=== PATIENT | female | born 1975 | race Caucasian/White ===

== ENCOUNTER 2017-02-28 14:21 | Emergency (ER) | payer MEDICAID ==
[2017-02-28 15:29] LABS: BASO % 0.4 % (0-6); EOS % 3.3 % (0-6); GRAN % 67.3 % (47-80); HEMATOCRIT 42.4 % (35.0-47.0); HEMOGLOBIN 14.4 gm/dl (11.6-16.0); LYMPH % 22.3 % (16-45); MEAN CELL VOLUME 91.2 fl (81-97); MEAN PLATELET VOLUME 12.9 fl (7.4-10.4); MONO % 6.7 % (0-9); PLATELET COUNT 218 K/uL (130-400); RED BLOOD COUNT 4.65 M/uL (3.80-5.40); RED CELL DISTRIBUTION WIDTH 16.2 % (11.5-14.5); WHITE BLOOD COUNT W/O DIFF 10.7 K/uL (4.2-12.2)
[2017-02-28 15:30] LABS: URINE APPEARANCE CLEAR; URINE BILIRUBIN NEGATIVE (NEGATIVE); URINE BLOOD NEGATIVE (NEGATIVE); URINE COLOR YELLOW; URINE GLUCOSE (UA) NEGATIVE (NEGATIVE); URINE KETONE NEGATIVE (NEGATIVE); URINE LEUKOCYTE ESTERASE NEGATIVE (NEGATIVE); URINE NITRITE NEGATIVE (NEGATIVE); URINE PROTEIN NEGATIVE (NEGATIVE); URINE UROBILINOGEN 0.2 E.U./dL (0.20 - 1.00)
[2017-02-28] MEDS: LORAZEPAM 0.5 MG TABLET PO ONE ×2 (15:32→22:33)
[2017-02-28 15:34] LABS: COCAINE SCREEN URINE DETECTED; OPIATE SCREEN URINE DETECTED
[2017-02-28 15:35] LABS: AMPHETAMINE SCREEN URINE NOT DETECTED; BARBITURATE SCREEN URINE NOT DETECTED; BENZODIAZEPINE SCREEN URINE DETECTED; METHADONE SCREEN URINE NOT DETECTED; METHAMPHETAMINE SCREEN NOT DETECTED; OXYCODONE SCREEN URINE NOT DETECTED; PHENCYCLIDINE SCREEN URINE NOT DETECTED; PROPOXYPHENE SCREEN URINE NOT DETECTED; THC SCREEN URINE NOT DETECTED; TRICYCLIC ANTIDEPRESSANT SCRN NOT DETECTED
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
[2017-02-28 16:02] LABS: ALBUMIN 3.4 g/dL (4.0-5.0); ALKALINE PHOSPHATASE 78 U/L (35-104); ALT/SGPT 11 U/L (<33); AST/SGOT 15 U/L (10.0-35.0); BLOOD UREA NITROGEN 5 mg/dL (6-20); CREATININE 0.6 mg/dL (0.5-0.9); EST GLOMERULAR FILTRATION RATE > 60 mL/min; GLUCOSE,RANDOM 92 mg/dL (74-109); THYROID STIMULATING HORMONE 0.74 uIU/mL (0.270-4.20); TOTAL PROTEIN 6.7 g/dL (6.6-8.7)
[2017-02-28] MEDS: POTASSIUM CHLORIDE 20 MEQ TABLET PO ONE (16:18)
[2017-02-28] MEDS: IBUPROFEN 400 MG TABLET PO ONE (19:49)
[2017-02-28] MEDS: NICOTINE14 MG/24 HOUR PATCH TD SCH (19:59)
--- NOTE | 2017-02-28 23:45 | Emergency Department Record ---
History of Present Illness - General Chief Complaint: Suicide attempt Stated Complaint: CUTTING HERSELF Time Seen by Provider: 02/28/17 14:55 Source: Patient, Family Mode of Arrival: Ambulatory - History of Present Illness Onset/Timin -: Hour(s) Associated Psychiatric Symptoms: Auditory hallucinations, Depression, Suicidal ideation History of same: No Quality: Getting worse Improves With: None Context: Not taking psychiatric medications, Significant life stressor Associated Symptoms: Denies other symptoms Treatments Prior to Arrival: None If Self Harm: Admits thoughts of self harm, Self-inflicted trauma - [place] Coma Scale Eye Response: (4) Open spontaneously Motor Response: (6) Obeys commands Verbal Response: (5) Oriented [place]ora Total: 15 - Related Data Home Medications Medication Instructions Recorded Confirmed Last Taken Hydrocodone/Acetaminophen [[place] 1 each PO Q8H PRN 02/28/17 03/01/17 02/27/17 5-325 Tablet] Allergies Allergy/AdvReac Type Severity Reaction Status Date / Time amoxicillin Allergy Mild rash Verified 02/28/17 16:03 Penicillins Allergy Mild rash Verified 02/28/17 16:03 Review of Systems Constitutional: Reports: As per HPI. Denies: Chills, Fever, Malaise, Night sweats, Weakness, Weight change Eyes: Reports: As per HPI. Denies: Eye discharge, Eye pain, Photophobia, Vision change ENT: Reports: As per HPI. Denies: Congestion, Dental pain, Ear pain, Epistaxis , Hearing loss, Throat pain Respiratory: Reports: As per HPI. Denies: Cough, Dyspnea, Hemoptysis, Stridor, Wheezes Cardiovascular: Reports: As per HPI. Denies: Arrhythmia, Chest pain, Dyspnea on exertion, Edema, Murmurs, Orthopnea, Palpitations, Paroxysmal nocturnal dyspnea, Rheumatic Fever, Syncope Endocrine: Reports: As per HPI. Denies: Fatigue, Heat or cold intolerance, Polydipsia, Polyuria Gastrointestinal: Reports: As per HPI. Denies: Abdominal pain, Constipation, Diarrhea, Hematemesis, Hematochezia, Melena, Nausea, Vomiting Genitourinary: Reports: As per HPI. Denies: Abnormal menses, Discharge, Dyspareunia, Dysuria, Frequency, Hematuria, Incontinence, Retention, Urgency Musculoskeletal: Reports: As per HPI. Denies: Arthralgia, Back pain, Gout, Joint swelling, Myalgia, Neck pain Skin: Reports: As per HPI. Denies: Bruising, Change in color, Change in hair/ nails, Lesions, Pruritus, Rash Neurological: Reports: As per HPI. Denies: Abnormal gait, Confusion, Headache, Numbness, Paresthesias, Seizure, Tingling, Tremors, Vertigo, Weakness Psychiatric: Reports: As per HPI, Anxiety, Depression, Suicidal thoughts. Denies: Auditory hallucinations, Homicidal thoughts, Visual hallucinations Hematological/Lymphatic: Reports: As per HPI. Denies: Anemia, Blood Clots, Easy bleeding, Easy bruising, Swollen glands Past Medical History - SOCIAL HISTORY Smoking Status: Current every day smoker Alcohol Use: Occasional Drug Use: None - RESPIRATORY Hx Respiratory Disorders: No - CARDIOVASCULAR Hx Cardio Disorders: Yes Hx Hypertension: Yes - NEURO Hx Neuro Disorders: No - GI Hx GI Disorders: Yes Hx Reflux: Yes - Hx Genitourinary Disorders: No - ENDOCRINE Hx Endocrine Disorders: No - MUSCULOSKELETAL Hx Musculoskeletal Disorders: Yes Hx Back Injury: Yes - PSYCH Hx Psych Problems: Yes Hx Anxiety: Yes Hx Depression: Yes - HEMATOLOGY/ONCOLOGY Hx Hematology/Oncology Disorders: Yes Comment:: Anti E blood Family Medical History Any Significant Family History?: No Physical Exam - General Limitations: No limitations Course Vital Signs 02/28/17 02/28/17 02/28/17 14:29 16:04 16:08 Temperature 98.1 F Pulse Rate 92 H Pulse Rate [ 77 Pulse Ox Probe] Respiratory 20 16 Rate Blood Pressure 173/115 Blood Pressure 162/108 [Left Arm] Pulse Ox 99 98 02/28/17 02/28/17 16:44 19:04 Temperature Pulse Rate Pulse Rate [ 79 87 Pulse Ox Probe] Respiratory 16 16 Rate Blood Pressure Blood Pressure 143/102 185/104 [Left Arm] Pulse Ox 100 99 - Reevaluation(s) Reevaluation #1: 02/28/17 23:43 [facility] re-contacted for an updated as records were faxed approximately 6 hours ago , they report that they have received all information however there are 4 other patient's ahead of this patient for evaluation. Patient is resting comfortably at this time, updated on timeline. Reevaluation #2: 03/01/17 02:30 patient sleeping, vital signs are stable on examination. Awaiting return call from [facility] for psychiatric evaluation. Reevaluation #3: 03/01/17 04:35 Patient continues to rest comfortably, has been accepted by [facility] for evaluation. EMS contacted for transfer. Medical Decision Making - Lab Data Result diagrams: 02/28/17 15:17 02/28/17 15:17 Lab Results 02/28/17 02/28/17 02/28/17 Range/Units 15:17 15:17 15:17 WBC 10.7 (4.2-12.2) K/uL RBC 4.65 (3.80-5.40) M/uL Hgb 14.4 (11.6-16.0) gm/dl Hct 42.4 (35.0-47.0) % MCV 91.2 (81-97) fl MCH 31.0 (27-33) pg MCHC 34.0 (32-36) g/dl RDW 16.2 H (11.5-14.5) % Plt Count 218 (130-400) K/uL MPV 12.9 H (7.4-10.4) fl Gran % 67.3 (47-80) % Lymphocytes % 22.3 (16-45) % Monocytes % 6.7 (0-9) % Eosinophils % 3.3 (0-6) % Basophils % 0.4 (0-6) % Sodium (136-145) mmol/L Potassium (3.4-4.5) mmol/L Chloride (98-107) mmol/L Carbon Dioxide (22-29) mmol/L Anion Gap (7-16) BUN (6-20) mg/dL Creatinine (0.5-0.9) mg/dL Estimated GFR mL/min Random Glucose (74-109) mg/dL Calcium (8.6-10.0) mg/dL Total Bilirubin (0.2-1.0) mg/dL AST (10.0-35.0) U/L ALT (<33) U/L Alkaline Phosphatase (35-104) U/L Total Protein (6.6-8.7) g/dL Albumin (4.0-5.0) g/dL Globulin (1.4-4.8) gm/dL Albumin/Globulin Ratio (1.1-1.8) TSH (0.270-4.20) uIU/mL Urine Color Yellow Urine Appearance Clear Urine pH 6.0 (5.0-8.0) Ur Specific [place] <= 1.005 (1.002-1.030) Urine Protein Negative (NEGATIVE) Urine Glucose (UA) Negative (NEGATIVE) Urine Ketones Negative (NEGATIVE) Urine Blood Negative (NEGATIVE) Urine Nitrite Negative (NEGATIVE) Urine Bilirubin Negative (NEGATIVE) Urine Urobilinogen 0.2 (0.20 - 1.00) E.U./dL Ur Leukocyte Esterase Negative (NEGATIVE) Urine Opiates Screen Detected Ur Oxycodone Screen Not detected Urine Methadone Screen Not detected Ur Propoxyphene Screen Not detected Ur Barbituates Screen Not detected Ur Tricyclics Screen Not detected Ur Phencyclidine Scrn Not detected Ur Amphetamine Screen Not detected U Methamphetamines Scrn Not detected U Benzodiazepines Scrn Detected Urine Cocaine Screen Detected Urine Cannabis Screen Not detected Ethyl Alcohol (0-0.010) g/dL 02/28/17 Range/Units 15:17 WBC (4.2-12.2) K/uL RBC (3.80-5.40) M/uL Hgb (11.6-16.0) gm/dl Hct (35.0-47.0) % MCV (81-97) fl MCH (27-33) pg MCHC (32-36) g/dl RDW (11.5-14.5) % Plt Count (130-400) K/uL MPV (7.4-10.4) fl Gran % (47-80) % Lymphocytes % (16-45) % Monocytes % (0-9) % Eosinophils % (0-6) % Basophils % (0-6) % Sodium 139 (136-145) mmol/L Potassium 3.3 L (3.4-4.5) mmol/L Chloride 102 (98-107) mmol/L Carbon Dioxide 25.0 (22-29) mmol/L Anion Gap 12.0 (7-16) BUN 5 L (6-20) mg/dL Creatinine 0.6 (0.5-0.9) mg/dL Estimated GFR > 60 mL/min Random Glucose 92 (74-109) mg/dL Calcium 9.2 (8.6-10.0) mg/dL Total Bilirubin 0.20 (0.2-1.0) mg/dL AST 15 (10.0-35.0) U/L ALT 11 (<33) U/L Alkaline Phosphatase 78 (35-104) U/L Total Protein 6.7 (6.6-8.7) g/dL Albumin 3.4 L (4.0-5.0) g/dL Globulin 3.3 (1.4-4.8) gm/dL Albumin/Globulin Ratio 1.0 L (1.1-1.8) TSH 0.74 (0.270-4.20) uIU/mL Urine Color Urine Appearance Urine pH (5.0-8.0) Ur Specific [place] (1.002-1.030) Urine Protein (NEGATIVE) Urine Glucose (UA) (NEGATIVE) Urine Ketones (NEGATIVE) Urine Blood (NEGATIVE) Urine Nitrite (NEGATIVE) Urine Bilirubin (NEGATIVE) Urine Urobilinogen (0.20 - 1.00) E.U./dL Ur Leukocyte Esterase (NEGATIVE) Urine Opiates Screen Ur Oxycodone Screen Urine Methadone Screen Ur Propoxyphene Screen Ur Barbituates Screen Ur Tricyclics Screen Ur Phencyclidine Scrn Ur Amphetamine Screen U Methamphetamines Scrn U Benzodiazepines Scrn Urine Cocaine Screen Urine Cannabis Screen Ethyl Alcohol 0.000 (0-0.010) g/dL Disposition Disposition: Discharge Clinical Impression: Suicidal behavior Qualifiers: Attempted self-injury: with attempted self-injury Qualified Code(s): T14.91XA - Suicide attempt, initial encounter Disposition: Psychiatric Hospital Condition: (1) Good Forms: Patient Portal Access Time of Disposition: 04:31 Quality - Quality Measures Quality Measures: N/A - Blood Pressure Screening Does Patient Have Any of the Following: Active Dx of HTN Blood Pressure Classification: Hypertensive Reading Systolic Measurement: 173 Diastolic Measurement: 115 Screening for High Blood Pressure: Patient Exclusion, Hx of HTN [[id number]]
[2017-03-01] MEDS: HYDROCODONE/APAP 5/325MG TABLET PO ONE (04:54)
== END 2017-03-01 05:37 ==
LOC: ER 14:21
DX: S61.512A Laceration without foreign body of left wrist, initial encounter (principal); S61.511A Laceration without foreign body of right wrist, initial encounter; I10 Essential (primary) hypertension; F41.8 Other specified anxiety disorders; F17.210 Nicotine dependence, cigarettes, uncomplicated; X78.9XXA Intentional self-harm by unspecified sharp object, initial encounter; Z79.899 Other long term (current) drug therapy
CPT/HCPCS: 99285 ×2; 85025; 80053; 81003; 84443; 80305; G0480; 80320